=== PATIENT | female | born 2000 | race Caucasian/White ===

== ENCOUNTER 2023-02-25 04:00 | Day surgery (SDC) | payer BC, SELFPAY ==
[2023-02-25] VITALS (29 sets, daily range): BP systolic 81–133; BP diastolic 44–79; PULSE 66–103; RESP 14–16; TEMP 36.3–37.3; O2SAT 92–99; BMI 21.3; BMI 21.2
--- NOTE | 2023-02-25 04:33 | ED.GENADULT ---
HPI - General Adult General Stated complaint: abdomen pain Time Seen by Provider: 02/25/23 04:28 Related Data Home Medications Medication Instructions Recorded Confirmed etonogestrel 68 mg subdermal 1 implant subdermal ONCE 04/24/22 06/03/22 implant (Nexplanon) Previous Rx's Medication Instructions Recorded amoxicillin 875 mg-potassium 1 tab PO Q12H #20 tabs 04/24/22 clavulanate 125 mg tablet Allergies Allergy/AdvReac Type Severity Reaction Status Date / Time No Known Drug Allergies Allergy Verified 06/03/22 14:08 PFSH PFSH Social History Smoking Status: Never smoker Discharge Plan Discharge Prescriptions: No Action Nexplanon 68 mg implant 1 implant subdermal ONCE Rx Instructions: as a single dose amoxicillin-pot clavulanate 875-125 mg tablet 1 tab PO Q12H Qty: 20 0RF Follow Up/Referrals: Nicole Stuart MD [Primary Care Provider] -
[2023-02-25 05:05] LABS: Appearance Urine Cloudy (Clear); Bilirubin Urine Negative (Negative); Blood Urine Negative (Negative); Color Urine Yellow (Yellow); Glucose Urine Negative (Negative); Ketones Urine Negative (Negative); Leukocyte Esterase Urine Trace (Negative); Nitrite Urine Negative (Negative); Protein Urine Negative (Negative); Urobilinogen Urine 0.2 (0.2-1.0)
[2023-02-25] MEDS: ONDANSETRON 2 MG/ML inj 4 MG IVP ×2 (05:05→09:06)
[2023-02-25] MEDS: 0.9 % SODIUM CHLORIDE 1000 ml 1,000 ML IV (05:05)
[2023-02-25] MEDS: KETOROLAC 30 MG/ML inj IVP (05:07)
[2023-02-25] MEDS: HYDROmorphone 0.5 mg/0.5 ml inj IVP ×3 (05:10→12:30)
[2023-02-25 05:12] LABS: Amorphous Sediment Urine Moderate; Bacteria Urine Moderate; RBC Urine 0-2 (0-2); Squamous Epithelial Cell Urine Few (None-Few)
[2023-02-25 05:17] LABS: Ur HCG Qualitative* Negative (Negative)
--- NOTE | 2023-02-25 05:20 | ED_ITS ---
HPI - General Adult General Time Seen by Provider: 05:20 <Ladarius Davila MD - Last Filed: 02/25/23 10:27> Date Seen: 02/25/23 <Ladarius Davila MD - Last Filed: 02/25/23 10:27> Chief complaint: Abdominal Pain <Ladarius Davila MD - Last Filed: 02/25/23 10:27> Stated complaint: abdomen pain <Ladarius Davila MD - Last Filed: 02/25/23 10:27> Time Seen by Provider: 02/25/23 04:28 <Ladarius Davila MD - Last Filed: 02/25/23 10:27> Source: patient <Ladarius Davila MD - Last Filed: 02/25/23 10:27> Mode of arrival: ambulatory <Ladarius Davila MD - Last Filed: 02/25/23 10:27> Limitations: no limitations <Ladarius Davila MD - Last Filed: 02/25/23 10:27> History of Present Illness HPI narrative: Patient is a 22-year-old female who presents here with abdominal pain in her suprapubic right lower quadrant region. Is been for the last couple days but definitely worsened overnight. She says it is worse when she moves but is also there when she does not move. She describes it as sharp crampy. Some mild nausea associated with this but she has not vomited. Does not radiate to her back or anywhere else, there is no evidence or history of constipation, her bowel movements been normal, she has no dysuria frequency noted. No past history of any operations. She has Nexplanon in her a left arm. Denies being and neck she took a test before she came in which was negative. Denies use of alcohol drugs, smoking, works in like [employer]. Did not take any medications for the discomfort. <Ladarius Davila MD - Last Filed: 02/25/23 10:27> Related Data Home medications: Home Medications Medication Instructions Recorded Confirmed etonogestrel 68 mg subdermal 1 implant subdermal ONCE 04/24/22 02/25/23 implant (Nexplanon) Previous Rx's Medication Instructions Recorded hydrocodone 5 mg-acetaminophen 325 1 tab PO Q6H PRN pain #15 tabs 02/25/23 mg tablet <Ladarius Davila MD - Last Filed: 02/25/23 10:27> Allergies/adverse reactions: Allergies Allergy/AdvReac Type Severity Reaction Status Date / Time No Known Drug Allergies Allergy Verified 02/25/23 08:59 <Ladarius Davila MD - Last Filed: 02/25/23 10:27> Review of Systems Status of ROS: Reports: 10 or more systems reviewed and unremarkable except as noted in History and below <Ladarius Davila MD - Last Filed: 02/25/23 10:27> [facility] Surgical History: Surgical History History of hymenectomy ?Z90.79 - Acquired absence of other genital organ(s) (ICD-10) <Ladarius Davila MD - Last Filed: 02/25/23 10:27> Social History: Social History Narrative: Denies smoking and drinks alcohol on the weekends. 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 Smoking Status: Never smoker Second hand tobacco smoke exposure: No How often do you have a drink containing alcohol: 2-4 times a month How many standard drinks containing alcohol do you have on a typical day: 3 or 4 How often do you have six or more drinks on one occasion: Never AUDIT-C Alcohol total score: 3 Non-prescribed substance use: denies use service: No <Ladarius Davila MD - Last Filed: 02/25/23 10:27> Exam Narrative: Exam Narrative: On examination she is in some moderate discomfort, tearing up. Pupils equal round reactive to light there is no scleral icterus redness or TMs are normal oropharynx is normal, there is no evidence of any redness, swelling, neck is supple absence of meningismus is noted, chest is good air entry bilaterally with no wheezing crackles noted heart sounds are normal, no clicks murmurs or gallops. Abdomen shows tenderness more on the right than the left side of her lower abdomen. No peritoneal signs, bowel sounds are normal, no CVA tenderness in moves all extremities independently and well. Skin reveals no rashes, <Ladarius Davila MD - Last Filed: 02/25/23 10:27> Const: Vital Signs, click to edit/add: Vital Signs - 24 hr 02/25/23 04:34 02/25/23 05:13 02/25/23 05:15 Temperature 99.2 F Pulse Rate 103 H Pulse Rate [Left P ulse Oximeter] 100 Pulse Rate [Pulse Oximeter] Respiratory Rate 16 Blood Pressure Blood Pressure [Ri ght Arm] Blood Pressure [Ri ght Upper Arm] 133/79 Pulse Oximetry 98 99 98 Oxygen Delivery Me thod Room Air 02/25/23 05:22 02/25/23 05:48 02/25/23 09:07 Temperature 99.2 F 98.7 F Pulse Rate 92 Pulse Rate [Left P ulse Oximeter] Pulse Rate [Pulse Oximeter] 75 Respiratory Rate 16 16 Blood Pressure 113/66 Blood Pressure [Ri ght Arm] 108/67 Blood Pressure [Ri ght Upper Arm] Pulse Oximetry 97 96 Oxygen Delivery Me thod Room Air <Ladarius Davila MD - Last Filed: 02/25/23 10:27> Vital Signs, click to edit/add: Vital Signs - 24 hr 02/25/23 04:34 02/25/23 05:13 02/25/23 05:15 Temperature 99.2 F Pulse Rate 103 H Pulse Rate [Left P ulse Oximeter] 100 Pulse Rate [Pulse Oximeter] Respiratory Rate 16 Blood Pressure Blood Pressure [Ri ght Arm] Blood Pressure [Ri ght Upper Arm] 133/79 Pulse Oximetry 98 99 98 Oxygen Delivery Me thod Room Air 02/25/23 05:22 02/25/23 05:48 02/25/23 09:07 Temperature 99.2 F 98.7 F Pulse Rate 92 Pulse Rate [Left P ulse Oximeter] Pulse Rate [Pulse Oximeter] 75 Respiratory Rate 16 16 Blood Pressure 113/66 Blood Pressure [Ri ght Arm] 108/67 Blood Pressure [Ri ght Upper Arm] Pulse Oximetry 97 96 Oxygen Delivery Me thod Room Air <Maksim Cuellar MD - Last Filed: 05/04/23 12:15> Documenting provider has reviewed patient's vital signs: yes <Ladarius Davila MD - Last Filed: 02/25/23 10:27> Course Reevaluation(s) Time of Reevaluation #1: 06:51 <Ladarius Davila MD - Last Filed: 02/25/23 10:27> Reevaluation #1: Pain is improved but she still has pain in the right lower quadrant, still fairly marked, went over the results with her including her leukocytosis, mildly positive urine test. Normal liver panel, normal lipase, negative test. My review of the CT scan shows a slightly enlarged appendix, but she also has a right-sided ovarian cyst complex, with no free fluid. Explained to her that we will wait for the read on radiology, likely get a ultrasound further delineate the ovarian issues. I will sign her over to my partner Dr. Kwadwo henning for further disposition, treatment, and diagnosis. <Ladarius Davila MD - Last Filed: 02/25/23 10:27> Pain is improved but she still has pain in the right lower quadrant, still fairly marked, went over the results with her including her leukocytosis, mildly positive urine test. Normal liver panel, normal lipase, negative test. My review of the CT scan shows a slightly enlarged appendix, but she also has a right-sided ovarian cyst complex, with no free fluid. Explained to her that we will wait for the read on radiology, likely get a ultrasound further delineate the ovarian issues. I will sign her over to my partner Dr. Polo henning for further disposition, treatment, and diagnosis. <Maksim Cuellar MD - Last Filed: 05/04/23 12:15> Time of Reevaluation #2: 07:40 <Maksim Cuellar MD - Last Filed: 05/04/23 12:15> Reevaluation #2: Call from radiology regarding imaging results. IMPRESSION: Findings concerning for acute uncomplicated appendicitis. Plan to call general surgery educational assistant teacher. Dr. Allen. Patient to go for ultrasound. <Maksim Cuellar MD - Last Filed: 05/04/23 12:15> Time of Reevaluation #3: 08:55 <Maksim Cuellar MD - Last Filed: 05/04/23 12:15> Reevaluation #3: Dr. Orozco to take patient to the OR for acute appendicitis, pain has been controlled, patient was in agreement with the plan. <Maksim Cuellar MD - Last Filed: 05/04/23 12:15> Vital Signs Vital signs: Initial Vital Signs Temperature 99.2 F 02/25/23 04:34 Temperature Source Temporal Artery Scan 02/25/23 04:34 Pulse Rate 100 02/25/23 04:34 Respiratory Rate 16 02/25/23 04:34 Blood Pressure 133/79 02/25/23 04:34 Blood Pressure Mean 97 02/25/23 04:34 Blood Pressure Position Sitting 02/25/23 04:34 Pulse Oximetry 98 02/25/23 04:34 Oxygen Delivery Method Room Air 02/25/23 04:34 Vital Signs Temperature 99.2 F 02/25/23 04:34 Pulse Rate 100 02/25/23 04:34 Respiratory Rate 16 02/25/23 04:34 Blood Pressure 133/79 02/25/23 04:34 Pulse Oximetry 98 02/25/23 04:34 Oxygen Delivery Method Room Air 02/25/23 04:34 Temperature 98.1 F 02/25/23 13:30 Pulse Rate 75 02/25/23 14:30 Respiratory Rate 16 02/25/23 14:30 Blood Pressure 116/69 02/25/23 14:30 Pulse Oximetry 99 02/25/23 14:30 Oxygen Delivery Method Room Air 02/25/23 14:30 Oxygen Flow Rate 0 02/25/23 14:30 <Ladarius Davila MD - Last Filed: 02/25/23 10:27> Initial Vital Signs Temperature 99.2 F 02/25/23 04:34 Temperature Source Temporal Artery Scan 02/25/23 04:34 Pulse Rate 100 02/25/23 04:34 Respiratory Rate 16 02/25/23 04:34 Blood Pressure 133/79 02/25/23 04:34 Blood Pressure Mean 97 02/25/23 04:34 Blood Pressure Position Sitting 02/25/23 04:34 Pulse Oximetry 98 02/25/23 04:34 Oxygen Delivery Method Room Air 02/25/23 04:34 Vital Signs Temperature 99.2 F 02/25/23 04:34 Pulse Rate 100 02/25/23 04:34 Respiratory Rate 16 02/25/23 04:34 Blood Pressure 133/79 02/25/23 04:34 Pulse Oximetry 98 02/25/23 04:34 Oxygen Delivery Method Room Air 02/25/23 04:34 Temperature 98.1 F 02/25/23 13:30 Pulse Rate 75 02/25/23 14:30 Respiratory Rate 16 02/25/23 14:30 Blood Pressure 116/69 02/25/23 14:30 Pulse Oximetry 99 02/25/23 14:30 Oxygen Delivery Method Room Air 02/25/23 14:30 Oxygen Flow Rate 0 02/25/23 14:30 <Maksim Cuellar MD - Last Filed: 05/04/23 12:15> Medical Decision Making MDM Narrative Medical decision making narrative: During the evaluation of this patient I considered multiple differential diagnosis including life-threatening differentials which are appendicitis, aortic aneurysm, mesenteric ischemia, bowel perforation, ectopic , volvulus and bowel obstruction, other differential diagnosis include but are not limited to inflammatory bowel disease, cholecystitis, pancreatitis, hepatitis, gastritis, GERD, diverticulitis, peptic ulcer disease, pyelonephritis/UTI, renal colic/stone, pelvic inflammatory disease, cervicitis, endometritis, intrauterine , dysfunctional uterine bleeding, ovarian cyst/torsion, spontaneous as well as other etiologies <Ladarius Davila MD - Last Filed: 02/25/23 10:27> Lab Data Labs: Lab Results 02/25/23 02/25/23 02/25/23 Range/Units 04:55 05:10 09:12 WBC 14.43 H (4.50-11.00) K/uL RBC 4.12 (4.00-5.20) m/uL Hgb 13.1 (12.0-16.0) gm/dL Hct 38.8 (33.0-51.0) % MCV 94 (80-100) fL MCH 32 (26-34) pg MCHC 34 (32-36) gm/dL RDW Coeff of Janette 12.1 (11.5-15.5) % Plt Count 207 (140-440) K/uL Neut % (Auto) 85.0 H (42.0-72.0) % Lymph % (Auto) 8.9 L (20-44) % [place] % (Auto) 5.6 (0.0-11.0) % Eos % (Auto) 0.3 (0.0-7.0) % Baso % (Auto) 0.1 (0.0-3.0) % Neut # (Auto) 12.30 H (1.7-7.0) K/uL Lymph # (Auto) 1.30 (0.90-2.90) K/uL [place] # (Auto) 0.80 (0.00-0.90) K/UL Eos # (Auto) 0.00 (0.00-0.50) K/uL Baso # (Auto) 0.00 (0.00-0.30) K/uL Abs Immat Gran (auto) 0.00 (0.00-0.30) K/uL Imm/Tot Granulo (auto) 0.1 % Sodium 138 (135-149) mmol/L Potassium 3.9 (3.6-5.1) mmol/L Chloride 104 (96-114) mmol/L Carbon Dioxide 25 (20-32) mmol/L Anion Gap 9 (7-15) mEq/L BUN 15 (5-24) mg/dL Creatinine 0.9 (0.5-1.5) mg/dL Estimated Creat Clear 81.79 Estimated GFR 93 ml/min Glucose 98 (60-115) mg/dL Calcium 9.7 (8.4-10.6) mg/dL Total Bilirubin 1.2 (0.1-1.5) mg/dL Direct Bilirubin 0.0 (0.0-0.5) mg/dL AST 24 (12-35) U/L ALT 22 (4-35) U/L Alkaline Phosphatase 80 (40-150) U/L Total Protein 7.4 (6.0-8.3) g/dL Albumin 4.3 (3.3-5.0) g/dL Lipase 69 (23-300) U/L TSH 2.210 (0.270-4.20) uIU/mL Urine Color Yellow (Yellow) Urine Appearance Cloudy A (Clear) Urine pH 8.0 (5.0-8.5) Ur Specific [place] 1.020 (1.000-1.030) Urine Protein Negative (Negative) Urine Glucose (UA) Negative (Negative) Urine Ketones Negative (Negative) Urine Blood Negative (Negative) Urine Nitrite Negative (Negative) Urine Bilirubin Negative (Negative) Urine Urobilinogen 0.2 (0.2-1.0) Ur Leukocyte Esterase Trace A (Negative) Urine RBC 0-2 (0-2) Urine WBC 5-10 A (0-5) Ur Squamous Epith Cells Few (None-Few) Amorphous Sediment Moderate A (None) Urine Bacteria Moderate A (None) Urine HCG, Qual Negative (Negative) SARS-CoV-2 (PCR) Negative SARS-CoV-2 (Negative) Influenza Type A (PCR) Negative PCR FLU A (Negative) Influenza Type B (PCR) Negative PCR FLU B (Negative) RSV (PCR) Negative PCR RSV (Negative) Lab Acknowledgement Test Added <Ladarius Davila MD - Last Filed: 02/25/23 10:27> Lab Results 02/25/23 02/25/23 02/25/23 Range/Units 04:55 05:10 09:12 WBC 14.43 H (4.50-11.00) K/uL RBC 4.12 (4.00-5.20) m/uL Hgb 13.1 (12.0-16.0) gm/dL Hct 38.8 (33.0-51.0) % MCV 94 (80-100) fL MCH 32 (26-34) pg MCHC 34 (32-36) gm/dL RDW Coeff of Janette 12.1 (11.5-15.5) % Plt Count 207 (140-440) K/uL Neut % (Auto) 85.0 H (42.0-72.0) % Lymph % (Auto) 8.9 L (20-44) % [place] % (Auto) 5.6 (0.0-11.0) % Eos % (Auto) 0.3 (0.0-7.0) % Baso % (Auto) 0.1 (0.0-3.0) % Neut # (Auto) 12.30 H (1.7-7.0) K/uL Lymph # (Auto) 1.30 (0.90-2.90) K/uL [place] # (Auto) 0.80 (0.00-0.90) K/UL Eos # (Auto) 0.00 (0.00-0.50) K/uL Baso # (Auto) 0.00 (0.00-0.30) K/uL Abs Immat Gran (auto) 0.00 (0.00-0.30) K/uL Imm/Tot Granulo (auto) 0.1 % Sodium 138 (135-149) mmol/L Potassium 3.9 (3.6-5.1) mmol/L Chloride 104 (96-114) mmol/L Carbon Dioxide 25 (20-32) mmol/L Anion Gap 9 (7-15) mEq/L BUN 15 (5-24) mg/dL Creatinine 0.9 (0.5-1.5) mg/dL Estimated Creat Clear 81.79 Estimated GFR 93 ml/min Glucose 98 (60-115) mg/dL Calcium 9.7 (8.4-10.6) mg/dL Total Bilirubin 1.2 (0.1-1.5) mg/dL Direct Bilirubin 0.0 (0.0-0.5) mg/dL AST 24 (12-35) U/L ALT 22 (4-35) U/L Alkaline Phosphatase 80 (40-150) U/L Total Protein 7.4 (6.0-8.3) g/dL Albumin 4.3 (3.3-5.0) g/dL Lipase 69 (23-300) U/L TSH 2.210 (0.270-4.20) uIU/mL Urine Color Yellow (Yellow) Urine Appearance Cloudy A (Clear) Urine pH 8.0 (5.0-8.5) Ur Specific [place] 1.020 (1.000-1.030) Urine Protein Negative (Negative) Urine Glucose (UA) Negative (Negative) Urine Ketones Negative (Negative) Urine Blood Negative (Negative) Urine Nitrite Negative (Negative) Urine Bilirubin Negative (Negative) Urine Urobilinogen 0.2 (0.2-1.0) Ur Leukocyte Esterase Trace A (Negative) Urine RBC 0-2 (0-2) Urine WBC 5-10 A (0-5) Ur Squamous Epith Cells Few (None-Few) Amorphous Sediment Moderate A (None) Urine Bacteria Moderate A (None) Urine HCG, Qual Negative (Negative) SARS-CoV-2 (PCR) Negative SARS-CoV-2 (Negative) Influenza Type A (PCR) Negative PCR FLU A (Negative) Influenza Type B (PCR) Negative PCR FLU B (Negative) RSV (PCR) Negative PCR RSV (Negative) Lab Acknowledgement Test Added <Maksim Cuellar MD - Last Filed: 05/04/23 12:15> Discharge Plan Discharge Clinical Impression: Acute appendicitis <Ladarius Davila MD - Last Filed: 02/25/23 10:27> Patient Disposition: XFER to OR <Ladarius Davila MD - Last Filed: 02/25/23 10:27>
[2023-02-25 05:21] LABS: Basophils Percent Auto 0.1 % (0.0-3.0); Eosinophils Percent Auto 0.3 % (0.0-7.0); Hematocrit 38.8 % (33.0-51.0); Hemoglobin* 13.1 gm/dL (12.0-16.0); Immature Granulocytes Pct Auto 0.1 %; Lymphocytes Percent Auto 8.9 % (20-44); Mean Corpuscular HGB Conc 34 gm/dL (32-36); Mean Corpuscular Hemoglobin 32 pg (26-34); Mean Corpuscular Volume 94 fL (80-100); Monocytes Percent Auto 5.6 % (0.0-11.0); Platelet Count* 207 K/uL (140-440); RDW Coefficient of Variation % 12.1 % (11.5-15.5); Red Blood Count 4.12 m/uL (4.00-5.20); White Blood Count* 14.43 K/uL (4.50-11.00)
[2023-02-25 05:24] LABS: Slide Review Reflex No
--- NOTE | 2023-02-25 05:28 | CRLHL7_ITS ---
For Patients: As a result of the Century Cures Act, medical imaging exams and procedure reports are released immediately into your electronic medical record. You may view this report before your referring provider. If you have questions, please contact your health care provider. INDICATION: Right lower abdominal pain. TECHNIQUE: CT abdomen and pelvis acquired with 58 cc Isovue 370 IV contrast. COMPARISON: None. FINDINGS: Lower chest: Unremarkable. Liver: Unremarkable. Normal in size and attenuation. No suspicious masses. Gallbladder and bile ducts: Unremarkable. No stones or inflammation. No biliary dilatation. Pancreas: Unremarkable. No mass or inflammation. Spleen: Unremarkable. Normal in size. No masses. Adrenal glands: Unremarkable. No nodules. Kidneys: Unremarkable. No suspicious masses, stones, or hydronephrosis. GI tract: Normal in caliber. Mild appendiceal dilation measuring up to 9 millimeters with trace periappendiceal fluid/inflammatory stranding (axial image 88 and sagittal image 109). No nirmal appendiceal fluid collection or free air. No calcified appendicolith. Vasculature: Abdominal aorta is normal in caliber. Mesenteric arteries are patent. Lymph nodes: No lymphadenopathy. Peritoneum/Abdominal Wall: Unremarkable. No sign of mass or infiltration. No free air. Pelvis: Unremarkable. Bones: Unremarkable for age. IMPRESSION: Findings concerning for acute uncomplicated appendicitis. Impression discussed via telephone with Dr. Cuellar on 02/25/2023 at 07:36. Please note that all CT scans at this facility use dose modulation, iterative reconstruction, and/or weight-based dosing when appropriate to reduce radiation dose to as low as reasonably achievable. Dictated by Lay Bellamy MD @ 02/25/2023 7:37:31 AM (Electronically Signed)
[2023-02-25 05:36] LABS: Albumin* 4.3 g/dL (3.3-5.0); Chloride* 104 mmol/L (96-114); Sodium* 138 mmol/L (135-149)
[2023-02-25 05:37] LABS: Potassium* 3.9 mmol/L (3.6-5.1)
[2023-02-25 05:38] LABS: Creatinine* 0.9 mg/dL (0.5-1.5); Est. Creatinine Clearance* 81.79; Estimated Glomerular Filt Rate 93 ml/min
[2023-02-25 05:39] LABS: Alanine Aminotransferase* 22 U/L (4-35); Alkaline Phosphatase* 80 U/L (40-150); Anion Gap 9 mEq/L (7-15); Aspartate Amino Transferase* 24 U/L (12-35); Bilirubin Total* 1.2 mg/dL (0.1-1.5); Blood Urea Nitrogen* 15 mg/dL (5-24); Calcium* 9.7 mg/dL (8.4-10.6); Carbon Dioxide* 25 mmol/L (20-32); Glucose* 98 mg/dL (60-115); Lipase* 69 U/L (23-300); Total Protein* 7.4 g/dL (6.0-8.3)
[2023-02-25 05:59] LABS: PCR FLU A Negative PCR FLU A (Negative); PCR FLU B Negative PCR FLU B (Negative); PCR RSV Negative PCR RSV (Negative)
[2023-02-25 06:00] LABS: SARS PCR* Negative SARS-CoV-2 (Negative)
--- NOTE | 2023-02-25 06:21 | CRLHL7_ITS ---
For Patients: As a result of the Cures Act, medical imaging exams and procedure reports are released immediately into your electronic medical record. You may view this report before your referring provider. If you have questions, please contact your health care provider. INDICATION: Ovarian cysts on prior CT not otherwise described in the history or on the prior CT report. TECHNIQUE: Ultrasound pelvis transabdominal. COMPARISON: CT 02/25/2023 at 6:04 a.m.. FINDINGS: The uterus is unremarkable. The right ovary is not identified. Review of the prior CT shows a normal right ovary with a tubular fluid density right adnexal finding suspicious for an incidental hydrosalpinx. Normal left ovary notable for a dominant follicle measuring less than 2 cm. This corresponds to a simple left adnexal cyst consistent with ovarian follicle measuring 2.1 cm on the prior CT (112/147). Spectral Doppler demonstrates a normal arterial waveform within the peripheral left ovarian parenchymal tissue. Small volume low-density pelvic ascites on the prior CT is not demonstrated on this examination. This is a nonspecific finding within physiologic limits of normal. Please note findings of acute appendicitis described in the report of the prior CT are not demonstrated on this examination. The appendix is not identified. IMPRESSION: Benign left ovarian follicle. The right ovary cannot be identified. Review of the prior CT is notable for a possible right hydrosalpinx. Differential diagnostic considerations include fluid-filled nondilated small-bowel loops in the right and uterine adnexal region. The right ovary on the prior CT is unremarkable. Dictated by Tex Blunt MD @ 02/25/2023 10:41:38 AM (Electronically Signed)
--- NOTE | 2023-02-25 09:07 | PM.GSCN ---
History of Present Illness Consult details Date Seen: 02/25/23 Consult date: 02/25/23 Narrative: 22-year-old female presented to emergency room with abdominal pain. Patient states that last night at 11:30 a.m. she started to feel periumbilical abdominal pain. She took Tums and try to use heat with no relief. She could not get comfortable. She finally fell asleep and woke up in the middle of the night with severe pain. The pain now was more towards the right lower quadrant. Movement made the pain worse. Nothing was helping the pain. Patient presented to the emergency room. She denied any vomiting but had nausea. Her last bowel movement was yesterday. In the emergency room she was found to have an elevated WBC of 14. An abdominal CT was obtained that showed a dilated wall enhancing appendix with no periappendiceal phlegmon or abscess. Review of Systems Narrative: General: no fevers HENT: no problems swallowing CV: no shortness of breath Resp: no cough GI: See above : Patient has not had her period for 3 years, she is on Nexplanon. 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 Smoking Status: Never smoker Second hand tobacco smoke exposure: No How often do you have a drink containing alcohol: 2-4 times a month How many standard drinks containing alcohol do you have on a typical day: 3 or 4 How often do you have six or more drinks on one occasion: Never AUDIT-C Alcohol total score: 3 Non-prescribed substance use: denies use service: No Meds Home Medications and Allergies Home Medications Medication Instructions Recorded Confirmed Type etonogestrel 68 mg subdermal 1 implant subdermal ONCE 04/24/22 02/25/23 History implant (Nexplanon) Allergies Allergy/AdvReac Type Severity Reaction Status Date / Time No Known Drug Allergies Allergy Verified 02/25/23 08:59 Exam Narrative: Exam Narrative: General appearance: Alert, cooperative, and in no distress Pulmonary: Chest symmetric, lungs clear bilaterally Cardiovascular Heart: Regular rate and rhythm, S1, S2, no murmurs/rubs/gallops Gastrointestinal Abdominal: soft, not distended, tender to palpation in the right lower quadrant with rebound tenderness. No tenderness anywhere else. Skin: Normal skin color, texture, and turgor. No rashes or lesions. Psychiatric: Alert, cooperative, normal affect. Const: Vital Signs, click to edit/add: Vital Signs - 24 hr 02/25/23 04:34 02/25/23 05:13 02/25/23 05:15 Temperature 99.2 F Pulse Rate 103 H Pulse Rate [Left P ulse Oximeter] 100 Respiratory Rate 16 Blood Pressure Blood Pressure [Ri ght Upper Arm] 133/79 Pulse Oximetry 98 99 98 Oxygen Delivery Me thod Room Air 02/25/23 05:22 02/25/23 05:48 Temperature 99.2 F Pulse Rate 92 Pulse Rate [Left P ulse Oximeter] Respiratory Rate 16 Blood Pressure 113/66 Blood Pressure [Ri ght Upper Arm] Pulse Oximetry 97 Oxygen Delivery Me thod Results Labs Labs: Abnormal lab results 02/25/23 02/25/23 Range/Units 04:55 05:10 WBC 14.43 H (4.50-11.00) K/uL Neut % (Auto) 85.0 H (42.0-72.0) % Lymph % (Auto) 8.9 L (20-44) % Neut # (Auto) 12.30 H (1.7-7.0) K/uL Urine Appearance Cloudy A (Clear) Ur Leukocyte Esterase Trace A (Negative) Urine WBC 5-10 A (0-5) Amorphous Sediment Moderate A (None) Urine Bacteria Moderate A (None) Diabetes panel 02/25/23 Range/Units 05:10 Sodium 138 (135-149) mmol/L Potassium 3.9 (3.6-5.1) mmol/L Chloride 104 (96-114) mmol/L Carbon Dioxide 25 (20-32) mmol/L BUN 15 (5-24) mg/dL Creatinine 0.9 (0.5-1.5) mg/dL Glucose 98 (60-115) mg/dL Calcium 9.7 (8.4-10.6) mg/dL AST 24 (12-35) U/L ALT 22 (4-35) U/L Alkaline Phosphatase 80 (40-150) U/L Total Protein 7.4 (6.0-8.3) g/dL Albumin 4.3 (3.3-5.0) g/dL Calcium panel 02/25/23 Range/Units 05:10 Calcium 9.7 (8.4-10.6) mg/dL Albumin 4.3 (3.3-5.0) g/dL Pituitary panel 02/25/23 Range/Units 05:10 Sodium 138 (135-149) mmol/L Potassium 3.9 (3.6-5.1) mmol/L Chloride 104 (96-114) mmol/L Carbon Dioxide 25 (20-32) mmol/L BUN 15 (5-24) mg/dL Creatinine 0.9 (0.5-1.5) mg/dL Glucose 98 (60-115) mg/dL Calcium 9.7 (8.4-10.6) mg/dL Adrenal panel 02/25/23 Range/Units 05:10 Sodium 138 (135-149) mmol/L Potassium 3.9 (3.6-5.1) mmol/L Chloride 104 (96-114) mmol/L Carbon Dioxide 25 (20-32) mmol/L BUN 15 (5-24) mg/dL Creatinine 0.9 (0.5-1.5) mg/dL Glucose 98 (60-115) mg/dL Calcium 9.7 (8.4-10.6) mg/dL Total Bilirubin 1.2 (0.1-1.5) mg/dL AST 24 (12-35) U/L ALT 22 (4-35) U/L Alkaline Phosphatase 80 (40-150) U/L Total Protein 7.4 (6.0-8.3) g/dL Albumin 4.3 (3.3-5.0) g/dL All other labs normal. Assessment and Plan Assessment and plan (1) Acute appendicitis: Status: Acute Plan 22-year-old female presents with acute appendicitis. I discussed with the patient and her mother over the phone her laboratory and imaging findings. Her CT scan shows inflamed and dilated appendix consistent with acute appendicitis. I recommended to proceed with laparoscopic appendectomy. The procedure was discussed in detail, the risks associated with the procedure including infection, bleeding, and injury to the intra-abdominal organs were all discussed with the patient, and she agreed to proceed.
--- NOTE | 2023-02-25 09:54 | W.ANESCHARGE ---
Anesthesia Charges Start Date/Time Anesthesia Start Date: 02/25/23 Anesthesia Start Time: 10:29 Stop Date/Time Anesthesia Stop Date: 02/25/23 Anesthesia Stop Time: 11:41 Summary Emergency: MDA
[2023-02-25] MEDS: CEFAZOLIN 1 GM inj IVP (10:36)
[2023-02-25] MEDS: LACTATED RINGERS 1000 ML 1,000 ML 100 ML IV ×2 (10:40→12:57)
[2023-02-25] MEDS: BUPIVACAINE 0.25% 30 ML INJECTION (11:03)
--- NOTE | 2023-02-25 11:39 | PM.GSPRC ---
Operative Note Pre-op diagnosis: 1. Acute appendicitis. Post-op diagnosis: 1. Acute suppurative appendicitis. Type of Procedure: 1. Laparoscopic appendectomy. Indications: 22-year-old female presented to emergency room with several hours of abdominal pain that started periumbilical and migrated to the right lower quadrant. Patient had nausea but no vomiting. Patient was found to have an elevated WBC of 14. An abdominal CT was obtained that showed a dilated wall enhancing appendix with no evidence of perforation. There was no evidence of periappendiceal abscess. On clinical exam patient had tenderness to palpation in the right lower quadrant with rebound tenderness. Given patient's clinical history, acute appendicitis was suspected, and laparoscopic appendectomy was recommended. The procedure was discussed in detail. The risks associated procedure including infection, bleeding, and injury to intra-abdominal organs were all discussed with the patient, and she agreed to proceed. Procedure Description: After discussing the risks and benefits of the procedure, the patient signed informed consent.? The operative site was marked and the patient was brought to the operating room and placed on the operating table in supine position.? Care was taken to pad the patient's pressure points.?? The patient was then intubated by anesthesia.?? The operative site was then prepped and draped in the usual sterile fashion.? A time-out was then performed. A 5-mm laparoscopy port was placed in the left upper quadrant guided by a 5-mm laparoscope placed into a translucent trochar. Passage through the layers of the abdominal wall was visualized with the laparoscope. A pneumoperitoneum was established. A 30-degree 5-mm laparoscope was advanced into the abdomen. The abdomen was briefly surveyed, and there was no evidence of diffuse peritonitis. A 12-mm port and a 5-mm port were placed in the left low quadrant and suprapubically, under direct visualization by laparoscope. Left upper quadrant entrance port was then examined intraabdominally by placing the camera through the left lower quadrant port and no intraabdominal injury was seen. The patient was placed in Trendelenburg position, allowing the abdominal contents to shift cephalad. The small bowel was moved toward the midline in the abdomen and this allowed for identification of the appendix. It appeared to be inflamed. The appendix was grasped and dissected from the peritoneum using Harmonic scalpel. A [place] clamp was passed between the appendiceal mesentery and the base of the appendix, creating a window. The appendiceal artery was further skeletonized with Harmonic scalpel. The appendiceal artery and vein were clipped with 5 mm clips on the patient's side and divided with Harmonic scalpel on the specimen side. A vascular load Endo-SHAY stapler was advanced through the 12-mm port into the abdomen and appendix was stapled off at its base. The appendix was then placed in an endoscopic retrieval bag and extracted from the abdomen through the 12-mm port. The abdomen was surveyed for hemostasis. And no bleeding was seen. Bilateral ovaries were examined and tiny left ovarian cysts were noted. The 12-mm port was withdrawn and the fascial defect was closed with 0-0 Vicryl stitch. This closure was examined intra-abdominally, and no intra-abdominal structures were incarcerated in the closure. The 5-mm port was removed under direct visualization. The left upper quadrant port was used to evacuate the pneumoperitoneum and then withdrawn. The skin incisions were closed with 4-0 monocryl. Steri-Strips were applied over the incisions. All counts were correct at the end of the case. The patient tolerated this procedure well and was transferred to PACU in stable condition. Findings: Inflamed not perforated appendix. Anesthesia: GETA Surgeon: Everardo Allen MD Estimated blood loss (mL): 5 Specimen: Appendix Condition: stable Disposition: PACU Date of procedure: 02/25/23
--- NOTE | 2023-02-25 11:43 | P.ANES_ITS ---
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
== END 2023-02-25 15:24 | disposition home or self-care (01) ==
LOC: ED 08:59 → OR 09:01
PROVIDERS: Student in an Organized Health Care Education/Training Program; Emergency Provider Family Medicine; PCP Pediatrics; Visit Provider Surgery
PROC: 0DTJ4ZZ Resection of Appendix, Percutaneous Endoscopic Approach (ICD-10-PCS; CPT 44970; principal; 2023-02-25 10:30)
DX: K35.80 Unspecified acute appendicitis (principal)
CPT/HCPCS: 44970; 00840; 36415; 74177; 76856; 80048; 80076; 81001; 81025; 83690; 84443; 84703; 85025; 87086; 87631; 88304; 93976; 94761; 99140; 99284; 99285; J0330; J0665; J0690; J1100; J1170; J1200; J1885; J2250; J2405; J2704; J3010; J7030; J7120; Q9967

== ENCOUNTER 2023-05-25 23:00 | Emergency (ER) | payer BC, SELFPAY ==
[2023-05-25 23:16] VITALS: BP 129/89; PULSE 140; RESP 20; TEMP 38.1; O2SAT 98; BMI 21.3
--- NOTE | 2023-05-26 | CT_ITS ---
Patient: SINGH HINTON Facility:?[facility] Patient ID:?[id number] Site Patient ID:?[id number]. Site :?[id number] Study:?CT-ST Neck with 58cc [id number] contrast-05/26/2023 3:20:42 AM Ordering Physician:?Victor Manuel Farias Final Report: INDICATION: Sore throat. TECHNIQUE: CT soft tissue of the neck was acquired with 58 cc Isovue 370 IV contrast. COMPARISON: None. FINDINGS: Skull base: Unremarkable. Pharynx/Larynx/Trachea: Epiglottis is normal. Airway is patent. Adjacent soft tissues are normal. Salivary glands: Unremarkable. Thyroid gland: Unremarkable. No significant nodules. Lymph nodes: No lymphadenopathy. Vessels: Unremarkable for age. Bones: Unremarkable for age. Misc: No inflammation, mass or fluid collection. Lung apices: Unremarkable. IMPRESSION: Unremarkable soft tissue CT of the neck. Please note that all CT scans at this facility use dose modulation, iterative reconstruction, and/or weight-based dosing when appropriate to reduce radiation dose to as low as reasonably achievable. Dictated by Johnathan Alvarez MD @ 05/26/2023 3:50:05 AM Signed by:?Johnathan Alvarez MD @05/26/2023 3:50:05 AM (Electronic Signature)
[2023-05-26 00:15] LABS: PCR FLU A Negative PCR FLU A (Negative); PCR FLU B Negative PCR FLU B (Negative); PCR RSV Negative PCR RSV (Negative)
[2023-05-26 00:27] LABS: SARS PCR* Negative SARS-CoV-2 (Negative)
[2023-05-26 02:00] VITALS: O2SAT 98
[2023-05-26] MEDS: 0.9 % SODIUM CHLORIDE 1000 ml 1,000 ML IV (02:06)
[2023-05-26] MEDS: ONDANSETRON 2 MG/ML inj 4 MG IVP (02:06)
[2023-05-26] MEDS: dexAMETHasone 4 MG/ML VIAL 10 MG IV (02:07)
[2023-05-26] MEDS: MORPHINE 2 MG/ML inj IVP (02:10)
[2023-05-26 04:00] VITALS: RESP 16; O2SAT 98
[2023-05-26 04:15] VITALS: BP 113/78; PULSE 85; RESP 20; TEMP 37.2; O2SAT 98
--- NOTE | 2023-05-26 05:34 | ED_ITS ---
HPI - General Adult General Time Seen by Provider: 05:34 Date Seen: 05/26/23 Chief complaint: Unspecified Complaint, Adult Stated complaint: Vomiting all day, feels like throat ripped open Time Seen by Provider: 05/26/23 05:34 Source: patient, RN notes reviewed and old records reviewed Mode of arrival: ambulatory Limitations: no limitations History of Present Illness HPI narrative: 23-year-old female previously healthy presents for sore throat and inability to swallow.? Patient notes the onset of vomiting on the morning of 05/25/23 at 0300 hours that continued persistently till 0800 hours.? Patient states that during that time she had a lot of bile and now is unable to swallow.? She denies unilateral discomfort.? She states she feels like something happened in her throat when she sneezed.? She has not been able to take any fluids as she has persistent nausea.? She also reports abdominal pain from vomiting.? She denies any diarrhea.? Positive for a fever greater than 100 upon her arrival.? No known ill exposures. Related Data Home Medications Medication Instructions Recorded Confirmed etonogestrel 68 mg subdermal 1 implant subdermal ONCE 04/24/22 02/25/23 implant (Nexplanon) Previous Rx's Medication Instructions Recorded hydrocodone 5 mg-acetaminophen 325 1 tab PO Q6H PRN pain #15 tabs 02/25/23 mg tablet Allergies Allergy/AdvReac Type Severity Reaction Status Date / Time No Known Drug Allergies Allergy Verified 02/25/23 08:59 Review of Systems Status of ROS: Reports: 10 or more systems reviewed and unremarkable except as noted in History and below Narrative: Adamantly denies . Const: Reports: fever and fatigue Eyes: Denies: change in vision ENMT: Reports: throat pain, neck pain, throat swelling, difficulty swallowing and hoarseness; Denies: nasal discharge or nasal congestion Cardio: Denies: chest pain or shortness of breath with exertion Resp: Denies: shortness of breath or cough GI: Reports: abdominal pain, nausea, vomiting (Now resolved) and difficulty swallowing; Denies: diarrhea or bloating : Denies: painful urination Musculo: Reports: neck pain Integ/Breast: Denies: rash Neuro: Denies: headache Endo: Reports: fatigue Allergy/Immuno: Reports: throat swelling PFSH PFSH Surgical History 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 Smoking Status: Never smoker Second hand tobacco smoke exposure: No How often do you have a drink containing alcohol: 2-4 times a month How many standard drinks containing alcohol do you have on a typical day: 3 or 4 How often do you have six or more drinks on one occasion: Never AUDIT-C Alcohol total score: 3 Non-prescribed substance use: denies use service: No Exam Narrative: Exam Narrative: Patient is alert and oriented. Obvious hoarse voice. She does appear to be protecting her airway. No external neck asymmetry. TMs bilaterally without erythema or fluid. Oral cavity shows moist mucous membranes and increased erythema in the posterior oropharynx. Neck is supple. She has soft tissue swelling of the uvula and soft palate but no obvious obstruction. Neck is supple without lymphadenopathy. Heart with a tachycardic rate but normal rhythm. Lungs are clear bilaterally. Abdomen is soft no significant tenderness or organomegaly. Lower extremities without edema. Note there is a foul odor consistent with mono or strep. Const: Vital Signs, click to edit/add: Vital Signs - 24 hr 05/25/23 23:16 Temperature 100.6 F H Pulse Rate [Pulse Oximeter] 140 H Respiratory Rate 20 Blood Pressure [Ri ght Upper Arm] 129/89 Pulse Oximetry 98 Oxygen Delivery Me thod Room Air Documenting provider has reviewed patient's vital signs: yes Course Course ED Course: Differential diagnosis includes but is not limited to strep, viral infection, bacterial throat infection, mononucleosis, peritonsillar abscess, traumatic injury to throat. Will place IV and give morphine 2 mg, Zofran 4 mg and 1 L of normal saline. Plan on CT of the neck soft tissues as well as CBC, comprehensive, CRP, mono. Vital Signs Vital signs: Initial Vital Signs Temperature 100.6 F H 05/25/23 23:16 Temperature Source Temporal Artery Scan 05/25/23 23:16 Pulse Rate 140 H 05/25/23 23:16 Respiratory Rate 20 05/25/23 23:16 Blood Pressure 129/89 1212/23 23:16 Blood Pressure Mean 102 05/25/23 23:16 Pulse Oximetry 98 05/25/23 23:16 Oxygen Delivery Method Room Air 05/25/23 23:16 Vital Signs Temperature 100.6 F H 05/25/23 23:16 Pulse Rate 140 H 05/25/23 23:16 Respiratory Rate 20 05/25/23 23:16 Blood Pressure 129/89 05/25/23 23:16 Pulse Oximetry 98 05/25/23 23:16 Oxygen Delivery Method Room Air 05/25/23 23:16 Temperature 100.6 F H 05/25/23 23:16 Pulse Rate 140 H 05/25/23 23:16 Respiratory Rate 20 05/25/23 23:16 Blood Pressure 129/89 05/25/23 23:16 Pulse Oximetry 98 05/25/23 23:16 Oxygen Delivery Method Room Air 05/25/23 23:16 Medical Decision Making MDM Narrative Medical decision making narrative: 1. Pharyngitis-at this time I strongly suspect mononucleosis. [place] test is negative today as it should be as patient has had not enough days of symptoms to turned that positive. In the ED she is given Decadron 10 mg IV. Morphine 2 mg and Zofran 4 mg. She had no vomiting and was able to sleep soundly. Heart rate normalized during this. CT reassuring with no abnormalities. Strep was negative. Patient is feeling better at this time. I do reexamine abdomen and there is no evidence of organomegaly. Again, strongly suspect that this is a mono infection. I have advised patient to follow-up with her primary MD this week unless she has complete resolution of her symptoms in the next 48 hours. For ongoing symptoms past 7 days would recheck mono once again. She has continued on prednisone 20 mg p.o. b.i.d. x5 days. Finally, given appearance of throat erythema of fall odor am also suggesting an antibiotic but would avoid penicillins in this setting. Will use Z-Marin at this time. 2. Disposition-patient will be discharged home. She feels that she is able to take care of herself but assures me that there are others in her house that care for her. I would definitely follow up with her primary MD for ongoing symptoms. If this is indeed mono she will need to be monitor for potential development of organomegaly. She should return to the emergency room for worsening symptoms. Note that prior to departure her voice had almost entirely return to normal. She appeared to be much improved after resting here for a number of hours. Medical Records Medical records reviewed: Yes I reviewed the patient's medical records Lab Data Lab results reviewed: Yes I reviewed the patient's lab results Labs: Lab Results 05/25/23 05/26/23 Range/Units 22:23 01:55 WBC 8.34 (4.50-11.00) K/uL RBC 4.41 (4.00-5.20) m/uL Hgb 14.1 (12.0-16.0) gm/dL Hct 42.2 (33.0-51.0) % MCV 96 (80-100) fL MCH 32 (26-34) pg MCHC 33 (32-36) gm/dL Plt Count 207 (140-440) K/uL Neut % (Auto) 82.1 H (42.0-72.0) % Lymph % (Auto) 10.9 L (20-44) % [place] % (Auto) 6.5 (0.0-11.0) % Eos % (Auto) 0.2 (0.0-7.0) % Baso % (Auto) 0.1 (0.0-3.0) % Neut # (Auto) 6.80 (1.7-7.0) K/uL Lymph # (Auto) 0.90 (0.90-2.90) K/uL [place] # (Auto) 0.50 (0.00-0.90) K/UL Eos # (Auto) 0.00 (0.00-0.50) K/uL Baso # (Auto) 0.00 (0.00-0.30) K/uL Abs Immat Gran (auto) 0.00 (0.00-0.30) K/uL Imm/Tot Granulo (auto) 0.2 % Sodium 138 (135-149) mmol/L Potassium 3.7 (3.6-5.1) mmol/L Chloride 105 (96-114) mmol/L Carbon Dioxide 22 (20-32) mmol/L Anion Gap 11 (7-15) mEq/L BUN 16 (5-24) mg/dL Creatinine 0.9 (0.5-1.5) mg/dL Estimated Creat Clear 81.11 Estimated GFR 93 ml/min Glucose 109 (60-115) mg/dL Calcium 9.2 (8.4-10.6) mg/dL Total Bilirubin 1.4 (0.1-1.5) mg/dL AST 22 (12-35) U/L ALT 17 (4-35) U/L Alkaline Phosphatase 72 (40-150) U/L C-Reactive Protein 3.5 H (0.5-1.0) mg/dL Total Protein 7.8 (6.0-8.3) g/dL Albumin 4.7 (3.3-5.0) g/dL SARS-CoV-2 (PCR) Negative SARS-CoV-2 (Negative) Monoscreen Negative (Negative) Influenza Type A (PCR) Negative PCR FLU A (Negative) Influenza Type B (PCR) Negative PCR FLU B (Negative) RSV (PCR) Negative PCR RSV (Negative) Group A Strep DNA NOT DETECTED (Not Detectd) Imaging Data Soft tissue neck CT: Attestation: I have reviewed the pertinent imaging results. My impression: By my read no evidence of peritonsillar abscess. Radiologist's impression: Skull base: Unremarkable. Pharynx/Larynx/Trachea: Epiglottis is normal. Airway is patent. Adjacent soft tissues are normal. Salivary glands: Unremarkable. Thyroid gland: Unremarkable. No significant nodules. Lymph nodes: No lymphadenopathy. Vessels: Unremarkable for age. Bones: Unremarkable for age. Misc: No inflammation, mass or fluid collection. Lung apices: Unremarkable. IMPRESSION: Unremarkable soft tissue CT of the neck. Discharge Plan Discharge Prescriptions: No Action Nexplanon 68 mg implant 1 implant subdermal ONCE Rx Instructions: as a single dose hydrocodone-acetaminophen 5-325 mg tablet 1 tab PO Q6H PRN (Reason: pain) Qty: 15 0RF Follow Up/Referrals: Nicole Stuart MD [Primary Care Provider] -
[2023-05-26 06:32] LABS: Red Blood Count 4.41 m/uL (4.00-5.20); White Blood Count* 8.34 K/uL (4.50-11.00)
[2023-05-26 06:33] LABS: Basophils Percent Auto 0.1 % (0.0-3.0); Eosinophils Percent Auto 0.2 % (0.0-7.0); Hematocrit 42.2 % (33.0-51.0); Hemoglobin* 14.1 gm/dL (12.0-16.0); Immature Granulocytes Pct Auto 0.2 %; Lymphocytes Percent Auto 10.9 % (20-44); Mean Corpuscular HGB Conc 33 gm/dL (32-36); Mean Corpuscular Hemoglobin 32 pg (26-34); Mean Corpuscular Volume 96 fL (80-100); Monocytes Percent Auto 6.5 % (0.0-11.0); Neutrophils Percent Auto 82.1 % (42.0-72.0); Platelet Count* 207 K/uL (140-440); Slide Review Reflex No
[2023-05-26 06:34] LABS: Albumin* 4.7 g/dL (3.3-5.0); Anion Gap 11 mEq/L (7-15); Bilirubin Total* 1.4 mg/dL (0.1-1.5); Blood Urea Nitrogen* 16 mg/dL (5-24); Calcium* 9.2 mg/dL (8.4-10.6); Carbon Dioxide* 22 mmol/L (20-32); Chloride* 105 mmol/L (96-114); Creatinine* 0.9 mg/dL (0.5-1.5); Est. Creatinine Clearance* 81.11; Estimated Glomerular Filt Rate 93 ml/min; Glucose* 109 mg/dL (60-115); Potassium* 3.7 mmol/L (3.6-5.1); Sodium* 138 mmol/L (135-149); Total Protein* 7.8 g/dL (6.0-8.3)
[2023-05-26 06:35] LABS: Alanine Aminotransferase* 17 U/L (4-35); Alkaline Phosphatase* 72 U/L (40-150); Aspartate Amino Transferase* 22 U/L (12-35); C Reactive Protein* 3.5 mg/dL (0.5-1.0); Mono Screen* Negative (Negative); Strep A DNA Probe* NOT DETECTED (Not Detectd)
== END 2023-05-26 05:34 | disposition home or self-care (01) ==
PROVIDERS: Emergency Provider Family Medicine; PCP Pediatrics
DX: J02.9 Acute pharyngitis, unspecified (principal)
CPT/HCPCS: 36415; 70491; 80053; 85025; 86140; 86308; 87631; 87651; 94761; 95992; 96374; 96375; 99284; 99285; J1100; J2270; J2405; J7030; Q9967

== ENCOUNTER 2023-09-13 12:22 | Emergency (ER) | payer BC, SELFPAY ==
[2023-09-13 12:30] VITALS: BP 118/74; PULSE 68; RESP 18; TEMP 37.5; O2SAT 97; BMI 21.8
--- NOTE | 2023-09-13 13:01 | US_ITS ---
Patient: SINGH HINTON Facility:?[facility] Patient ID:?[id number] Site Patient ID:?[id number]. Site :?2000 Study:?US-Pelvis TRANSVAGINAL-09/13/2023 1:45:23 PM Ordering Physician:?MAVIS HAGAN Final Report: Indication: Left abdominal pain Technique: Pelvic ultrasound, transvaginal, utilizing grayscale and color and spectral Doppler. Comparison: None Findings: The uterus is normal in appearance and size measuring 6.6 x 2.3 x 2.8 centimeters. No uterine masses or lesions. The endometrium is normal in appearance and thickness measuring 0.6 centimeters. The visualized portions of the cervix are normal in appearance. The bilateral ovaries are normal in appearance and size with internal arterial and venous flow on Doppler, measuring 3.4 x 1.7 x 3.1 centimeters on the right and 3.0 x 1.4 x 2.3 centimeters on the left. No free fluid. Impression: Unremarkable pelvic ultrasound. Dictated by Prem Guillory MD @ 09/13/2023 1:52:44 PM Signed by:?Prem Guillory MD @09/13/2023 1:52:44 PM (Electronic Signature)
[2023-09-13] MEDS: KETOROLAC 30 MG/ML inj IM (13:12)
--- NOTE | 2023-09-13 13:19 | ED.GENADULT ---
HPI - General Adult General Date Seen: 09/13/23 Chief complaint: Abdominal Pain Stated complaint: abdominal pain Time Seen by Provider: 09/13/23 12:45 Source: patient, RN notes reviewed and old records reviewed Mode of arrival: ambulatory Limitations: no limitations History of Present Illness HPI narrative: Patient is a 23-year-old here with her sister for evaluation of left-sided abdominal pain which has been present intermittently for a number of months. She says she was seen here for this same abdominal pain last February, had a CT scan and a pelvic ultrasound at that time. She was noted have a 2 cm ovarian cyst on the left and also was noted to have mild appendiceal dilation and inflammatory changes. She went on to have appendectomy but notes that she has continued to have this same pain. It lasts a few seconds to a few minutes at a time and during that time can be severe. Right now she just has a little bit of achiness on the left side. She has had this sporadically over the past months, this past week she says she has had episodes every day. Called make a clinic appointment and was recommended to come in to the ER for possible obstruction. She has had a normal appetite, no vomiting or diarrhea, denies constipation. She is sexually active, had her Nexplanon replaced last week and had a negative test at that time. Denies vaginal bleeding or discharge. Denies urinary symptoms. No fevers. No other abdominal surgeries. 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 Smoking Status: Never smoker Second hand tobacco smoke exposure: No How often do you have a drink containing alcohol: 2-4 times a month How many standard drinks containing alcohol do you have on a typical day: 3 or 4 How often do you have six or more drinks on one occasion: Never AUDIT-C Alcohol total score: 3 Non-prescribed substance use: denies use service: No Exam Narrative: Exam Narrative: Vital signs as noted above. In general, an alert, well-appearing patient. She looks comfortable, breathing easily. Head: Normocephalic, atraumatic. Eyes: Pupils are equal reactive. Extraocular movements are full. Conjunctivae are normal. ENT: Mucous membranes are moist. Throat is normal. Neck: Supple without lymphadenopathy. Heart: Regular rate and rhythm. No murmur or rub. Lungs: Clear bilaterally. No increased work of breathing, crackles or wheezes. Abdomen: Soft with fairly diffuse mild tenderness no rebound guarding or rigidity. Tenderness perhaps a little more on the left than the right. Extremities: Well perfused. No edema. No calf tenderness. Pulses intact. Neurologic: Patient is alert and oriented to person and place. Speech is fluent. Face is symmetric. Moves all extremities equally. Affect: Normal. Skin: Warm and dry. Well perfused. Const: Vital Signs, click to edit/add: Vital Signs - 24 hr 09/13/23 12:30 Temperature 99.5 F Pulse Rate [Pulse Oximeter] 68 Respiratory Rate 18 Blood Pressure [Ri ght Upper Arm] 118/74 Pulse Oximetry 97 Oxygen Delivery Me thod Room Air Documenting provider has reviewed patient's vital signs: yes Course Course ED Course: Previous records reviewed including her previous CT scan and ultrasound. Discussed with her that it may be difficult, but with a specific diagnosis in this case given duration and sporadic nature of her symptoms. Will repeat an ultrasound evaluate for ovarian cyst. I do not think a repeat CT scan is likely to be beneficial as her prior one was entirely normal aside from the appendiceal changes. Given that this pain pre dated her appendectomy, I think that CT scan can be reasonably considered in today's evaluation. Discussed that this may be functional abdominal pain, related to some sort of dietary intolerance, endometriosis, etcetera which are diagnoses I am unable to make with certainty in the emergency department. Will order urinalysis, I am not going to repeat a test as it was negative last week. Blood work unlikely to be beneficial in this case. Pelvic ultrasound read as negative by Radiology. UA showed 2-5 red cells, 5-10 white blood cells. She does not have clear symptoms of UTI, I think it is reasonable to await culture and see how she is feeling. She did have 30 mg of IM Toradol here. Her abdominal exam is benign, symptoms have been episodic and recurrent although not with an entirely clear pattern. She did have a period last week for the 1st time in several years, presumably related to her Nexplanon being switched out. Perhaps her symptoms are related to that, she says she does not typically get cramps when she does have a period. I have asked her to follow up with primary care to start, follow up with [facility] may make sense at some point. I have also asked her to keep track of the days that she does have pain, to start determining whether there is any pattern to it. Return as needed for severe symptoms. Ibuprofen or Tylenol as needed. Vital Signs Vital signs: Initial Vital Signs Temperature 99.5 F 09/13/23 12:30 Temperature Source Temporal Artery Scan 09/13/23 12:30 Pulse Rate 68 09/13/23 12:30 Respiratory Rate 18 09/13/23 12:30 Blood Pressure 118/74 09/13/23 12:30 Blood Pressure Mean 88 09/13/23 12:30 Blood Pressure Position Sitting 09/13/23 12:30 Pulse Oximetry 97 09/13/23 12:30 Oxygen Delivery Method Room Air 09/13/23 12:30 Vital Signs Temperature 99.5 F 09/13/23 12:30 Pulse Rate 68 09/13/23 12:30 Respiratory Rate 18 09/13/23 12:30 Blood Pressure 118/74 09/13/23 12:30 Pulse Oximetry 97 09/13/23 12:30 Oxygen Delivery Method Room Air 09/13/23 12:30 Temperature 99.5 F 09/13/23 12:30 Pulse Rate 68 09/13/23 12:30 Respiratory Rate 18 09/13/23 12:30 Blood Pressure 118/74 09/13/23 12:30 Pulse Oximetry 97 09/13/23 12:30 Oxygen Delivery Method Room Air 09/13/23 12:30 Medications Administered Medications: Discontinued Medications Generic Name Dose Route Start Last Admin Trade Name Freq PRN Reason Stop Dose Admin Ketorolac Tromethamine 30 mg 09/13/23 13:00 09/13/23 13:12 Ketorolac 30 Mg/Ml Inj IM 09/13/23 13:01 30 mg ONCE ONE Administration Medical Decision Making Lab Data Labs: Lab Results 09/13/23 Range/Units 13:00 Urine Color Yellow (Yellow) Urine Appearance Slightly Cloudy A (Clear) Urine pH 6.0 (5.0-8.5) Ur Specific [place] 1.025 (1.000-1.030) Urine Protein Negative (Negative) Urine Glucose (UA) Negative (Negative) Urine Ketones Negative (Negative) Urine Blood Trace-intact A (Negative) Urine Nitrite Negative (Negative) Urine Bilirubin Negative (Negative) Urine Urobilinogen 0.2 (0.2-1.0) Ur Leukocyte Esterase Trace A (Negative) Urine RBC 2-5 A (0-2) Urine WBC 5-10 A (0-5) Ur Squamous Epith Cells Few (None-Few) Urine Bacteria Moderate A (None) Discharge Plan Discharge Clinical Impression: Abdominal pain Patient Disposition: Home, Self-Care Condition: Stable Instructions: Abdominal Pain (ED) Additional Instructions: Keep track of your symptoms going forward, look for patterns. Ibuprofen and/or Tylenol as needed. Primary care follow-up. Return for worsening. Prescriptions: No Action Nexplanon 68 mg implant 1 implant subdermal ONCE Rx Instructions: as a single dose Follow Up/Referrals: Nicole Stuart MD [Staff Physician] - Stand Alone Forms: [employer] Info Instructions
[2023-09-13 13:29] LABS: Appearance Urine Slightly Cloudy (Clear); Bilirubin Urine Negative (Negative); Blood Urine Trace-intact (Negative); Color Urine Yellow (Yellow); Glucose Urine Negative (Negative); Ketones Urine Negative (Negative); Leukocyte Esterase Urine Trace (Negative); Nitrite Urine Negative (Negative); Protein Urine Negative (Negative); Specific Gravity Urine 1.025 (1.000-1.030); Urobilinogen Urine 0.2 (0.2-1.0)
[2023-09-13 13:51] LABS: Bacteria Urine Moderate; Squamous Epithelial Cell Urine Few (None-Few)
== END 2023-09-13 14:36 | disposition home or self-care (01) ==
PROVIDERS: Emergency Provider Emergency Medicine; PCP Student in an Organized Health Care Education/Training Program
DX: R10.9 Unspecified abdominal pain (principal)
CPT/HCPCS: 76830; 81001; 87086; 93976; 96372; 99284; J1885

== ENCOUNTER 2023-09-20 08:18 | Outpatient (CLI) | payer BC, SELFPAY | END 2023-09-20 08:19 | disposition home or self-care (01) | LOC: NFLDREF 08:19 | PROVIDERS: PCP Student in an Organized Health Care Education/Training Program; Visit Provider Internal Medicine | DX: R10.9 Unspecified abdominal pain (principal) | CPT/HCPCS: 80053 ==

== ENCOUNTER 2023-09-27 16:27 | Outpatient (CLI) | payer BC, SELFPAY ==
--- NOTE | 2023-09-27 16:45 | CT_ITS ---
Patient: SINGH HINTON Facility:?[facility] Patient ID:?[id number] Site Patient ID:?[id number]. Site :?2001 Study:?CT-Abdomen/Pelvis W/ 64CC ISOVUE 370-09/27/2023 5:05:12 PM Ordering Physician:ANTHONY Final Report: Indication: Abdominal pain Technique: CT Abdomen/Pelvis W/ 64CC ISOVUE 370 Please note that all CT scans at this facility use dose modulation, iterative reconstruction, and/or weight-based dosing when appropriate to reduce radiation dose to as low as reasonably achievable. Comparison: Pelvic ultrasound 09/13/2023 Findings: The lung bases are clear. No pleural effusion. No suspicious intrahepatic mass. Incidental gallbladder fold at the gallbladder fundus. No calcified gallstones. No biliary obstruction. The spleen is normal. Normal kidneys. The adrenal glands are within normal limits. Normal pancreas. Bladder is normal. No uterine fibroid. No pelvic mass. No bowel obstruction, free air or abscess. The appendix is absent. No evidence of inflammatory bowel disease. No adenopathy. No fracture. Impression: Unremarkable CT of the abdomen and pelvis. Please note that all CT scans at this facility use dose modulation, iterative reconstruction, and/or weight-based dosing when appropriate to reduce radiation dose to as low as reasonably achievable. Dictated by Atif Watkins MD @ 09/28/2023 9:56:53 AM Signed by:?Atif Watkins MD @09/28/2023 9:56:53 AM (Electronic Signature)
== END 2023-09-27 16:28 | disposition home or self-care (01) ==
LOC: CT 16:28
PROVIDERS: PCP Student in an Organized Health Care Education/Training Program; Visit Provider Internal Medicine
DX: R10.9 Unspecified abdominal pain (principal)
CPT/HCPCS: 74177; Q9967

== ENCOUNTER 2023-10-13 12:19 | Outpatient (CLI) | payer BC, SELFPAY ==
--- OUTSIDE RECORDS SUMMARY | 2023-10-13 12:21 | XMS_ITS | Clinical Summary ---
Author Name Unknown Organization [facility] Address [place], [place] [address] Care Team Providers Care Log Operations Coordinator Name Role Phone Nneka Jon MD Unavailable Pcp, No Primary Care Provider Unavailabl e Allergies No known active allergies Medications Hospital, Clinic, or Other Facility Administered Medication Ordered Dose Route Frequency Start Date End Date Status etonogestrel subdermal implant (NEXPLANON) 68 mg implant 1 EachIndications:Encounter for removal and reinsertion of Nexplanon 1 Each Sdrm Q 3 YEARS 09/11/2023 Active Active Problems Problem Noted Date Diagnosed Date Labial lesion 2023 Pap smear for cervical cancer screening 08/14/19 23 Overview: 07/2022 NIL Plan: Pap due 07/2025 Menorrhagia with irregular cycle 07/24/2016 Resolved Problems Problem Noted Date Diagnosed Date Resolved Date 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 Centralized Nurse Triage Pcp, No Abdominal Pain/problem 09/10/2023 11:05 AM CDT Office Visit [facility] [address] [place] [address] Anika Dennis MD Contraception (remove and replace Nexplanon) 09/10/2023 Travel 07/15/2023 11:00 AM PAINTING WORKER Nurse/Clinic Staff Only [facility] [address] [place] [address] Nurse/Clinic Staff Only 07/15/2023 Orders Only [address] [address] Evelio King PA <No scans attached> 07/15/2023 Travel from Last 3 Months Immunizations Name Administration Dates Next Due DTaP 01/24/2007, 3,2001,08/22,2001 HIB-HepB (Comvax) 09/27/2002, 2,2001,06/28 HPV 9 (Gardasil 9) 05/28/2017 Hepatitis A (Peds) 02/07/2013,01/28/2010 Hepatitis B (Peds) 05/15/2002 Hib Conjugate, Unspecified 05/15/2002 Human Papilloma Virus Vaccine 02/07/2013 Inactivated Polio Vaccine 01/24/2007,01/2002,2001,06/28 Influenza, IIV3 (Age >=3 years) 03/07/20 09,03/07/2009,05/02/2007,07/22 Influenza, IIV4 05/28/2017 MMR 01/24/2007,05/15/2002 MMRV 01/24/2007 Meningococcal Vaccine (Menveo) 05/28/2017,2012 Pneumococcal conj 7-Valent (Prevnar 7) 1 07/23/2002,09/27/2002,2001,06/28 Tdap 02/07/2013 Varicella Vaccine 01/24/2007,05/15/2002 Family History Medical History Relation Name Comments Unknown Father Autoimmune disease Mother hepatitis Hypertension Mother Thyroid Disease Mother nicho's Anesthesia Problem No Family History Relation Name Status Comments Father Mother Social History Tobacco Use Types Packs/Day Years Used Date Smoking Tobacco: Never Smokeless Tobacco: Never Tobacco Cessation:Counseling Given: Yes Comments:mom outside only Alcohol Use Standard Drinks/Week Comments No 0 (1 standard drink = 0.6 oz pur e alcohol) occasinal PHQ-2 Answer Date Recorded PHQ-2 TOTAL SCORE 0 07/28/2022 Social Connections Answer Date Recorded Frequency of Communication with Friends and Fami ly Not on file 09/13/2023 Financial Resource Strain Answer Date R ecorded Difficulty of Paying Living Expenses 3 09/10/2022 Difficulty of Paying Living Expenses Not on file 09/10/2022 Food Insecurity Answer Date Recorded Worried About Running Out of Food in the Last Ye ar 1 09/10/2022 Transportation Needs Answer Date Record ed Lack of Transportation (Medical) 1 09/10/2022 Housing Stability Answer Date Recorded Unable to Pay for Housing in the Last Year 1 09/10/2022 Sex and Gender Information Value Date Recorded Sex Assigned at Female 07/21/2022 7:57 AM PAINTING WORKER Gender Identity Female 07/21/2022 7:57 AM PAINTING WORKER Sexual Orientation Not on file Obstetrics History Para Term AB IAB SAB Ectopic Multiple Livin g Live Births 0 0 0 0 0 0 0 0 0 0 Last Filed Vital Signs Vital Sign Reading Time Taken Comments Blood Pressure 116/77 09/10/2023 11:10 AM CDT Pulse 101 09/10/2023 11:10 AM CDT Temperature 37.2 ??C (98.9 ??F) 07/29/2016 1:20 PM CS T Respiratory Rate - - Oxygen Saturation 99% 09/10/2023 11:10 AM CDT Inhaled Oxygen Concentration - - Weight 59.9 kg (132 lb) 09/10/2023 11:10 AM CDT Height 160 cm (5' 3) 07/13/2023 4:17 PM PAINTING WORKER Body Mass Index 23.38 07/13/2023 4:17 PM PAINTING WORKER Plan of Treatment Health Maintenance Due Date Last Done Comments Tetanus booster 02/07/2023 02/07/2013 COVID-19 vaccine series ( season) 2023 Depression screening for age 12+ 07/28/2023 07/28/2022, 10/23/2021, 10/20/2021, Additional history exists Influenza for age 9-49 02/13/2024 7, 03/07/2009, 03/07/2009, Additional history exists BMI (ht and wt on same day) for age 18+ 07/13/2024 07/13/2023, 2023, 08/24/2022, Additional history exists Chlamydia for age 16-24 07/13/2024 07/13/19 24, 2023, 12/02/2022, Additional history exists Pap test for age 21-65 07/28/2025 07/28/2022 Pneumococcal series for age 6-64 Aged Out 05/22/2003, 09/27/2002, 2001, Additional history exists No longer eligible based on patient's age to complete this topic Tdap Completed 02/07/2013 HIV for age 15-65 Completed 05/28/2017 HPV series for age 9-26 Completed 05/28/2017, 02/07 Hepatitis C screening for age 18-79 Completed 05/28/2017 Procedures Procedure Name Priority Date/Time Associated Diagnosis Comments SCAN-CT INTERPRETATION 09/27/2023 12:00 AM CDT THROAT RAPID STREP ONLY CLINIC Patient wait 07/15/2023 11:15 AM PAINTING WORKER Sore throat GC CHLAMYDIA TRACH PROBE Routine 07/13/2023 4:35 PM PAINTING WORKER Itching in the vaginal area BRICK AND TILE MAKING MACHINE OPERATOR THIN PREP PAP SCREEN IMAGED Routine 07/28/2022 3:28 PM PAINTING WORKER Screening for malignant neoplasm of cervix ANTI HIV 1/2 Routine 05/28/2017 9:32 AM PAINTING WORKER Screening examination for STD (sexually transmitted disease) Unprotected sexual intercourse ANTI HCV Routine 05/28/2017 9:32 AM PAINTING WORKER Screening examination for STD (sexually transmitted disease) Unprotected sexual intercourse from Last 3 Months or Most Recently Relevant to Health Maintenance Results * SCAN-CT INTERPRETATION (09/27/2023 12:00 AM CDT) Anatomical Region Laterality Modality Other Scanner OTHER * THROAT RAPID STREP ONLY CLINIC (07/15/2023 11:15 AM PAINTING WORKER) THROAT RAPID STREP A ANTIGEN Negative 07/15/2023 11:36 AM PAINTING WORKER [facility] Throat SPECIMEN FROM THROAT / Unknown Non-Blood / Unknown 07/15/2023 11:15 AM PAINTING WORKER 07/15/2023 11:28 AM PAINTING WORKER Evelio CARLOS MICROBIOLOGY Performing Organization Address City/[facility]/ZIP Co de Phone Number [facility] [address] [place] [address] * GC CHLAMYDIA TRACH PROBE (07/13/2023 4:35 PM PAINTING WORKER) CHLAMYDIA PROBE Negative 11:58 AM PAINTING WORKER [facility] N GONORRHOEAE PROBE Negative 07/14/2023 11:58 AM PAINTING WORKER [facility] Other VAGINAL SWAB / Unknown Non-Blood / Unknown 07/13/2023 4:35 PM PAINTING WORKER 07/13/2023 5:02 PM PAINTING WORKER Evelio CARLOS MICROBIOLOGY Performing Organization Address City/[facility]/ZIP Co de Phone Number [facility] [address] * BRICK AND TILE MAKING MACHINE OPERATOR THIN PREP PAP SCREEN IMAGED [[id number]] (07/28/2022 3:28 PM PAINTING WORKER) Case Report Gynecologic Cytology Report ? Case: [id number] ? Authorizing Provider: ??Nicole Stuart ? Collected: ? 07/28/2022 1528 ? MD Fallon ? Ordering Location: ? [facility] ?? Received: ?07/28/2022 1537 ? Clinic ? First Screen: ?Emy, Brandy ? Specimen: ?BRICK AND TILE MAKING MACHINE OPERATOR ThinPrep Vial Screening, Cervical ? 08/13/2022 11:18 AM [facility] INTERPRETATION/ RESULT NEGATIVE FOR INTRAEPITHELIAL LESION OR MALIGNANCY (NIL) (none) 08/13/2022 11:18 AM [facility] IMEN ADEQUACY Satisfactory for evaluation Endocervical component present 08/13/2022 11:18 AM PAINTING WORKER [facility] Date of LMP none - suppressed 2022 11:18 AM PAINTING WORKER [facility] Last Pap Date NA 08/13/2022 11:18 AM PAINTING WORKER [facility] Last Pap Result First Pap/Unknown 11:18 AM PAINTING WORKER [facility] Abnormal Pap or Cummings Bx in last 5 years No 08/13/2022 11:18 AM PAINTING WORKER [facility] Menstrual Status Hormonally Suppressed 08/13/2022 11:18 AM PAINTING WORKER [facility] ENTRAL LABORATORY Cummings Bx Done Today No 08/13/2022 11:18 AM PAINTING WORKER [facility] Additional Information None given 08/13/2022 11:18 AM PAINTING WORKER [facility] Comment: Cytology is screened at [facility] - [address], [place] [address] and [facility] - [address], [place] [address] and [facility] - [address] [place] [address] [facility] - [address], [place] [address] Automated Review Successful 08/13/2022 11:18 AM PAINTING WORKER [facility] Comment:Specimen processed s uccessfully by automated edger operator device, ThinPrep Imaging System, [employer] Note The pap test is a screening technique, not a diagnostic procedure. It is used primarily to screen for squamous cancers and precursor lesions. Published studies have shown that it is subject to both false negative and false positive results. The pap test should not be used as the sole means to diagnose or exclude pre-malignant and malignant lesions. 08/13/2022 11:18 AM PAINTING WORKER [facility] Other (Cervical) Non-Blood / Unknown 07/28/2022 3:28 PM PAINTING WORKER 07/28/2022 3:37 PM PAINTING WORKER Nicole Stuart MD PATHOLOGY/C YTOLOGY [facility] [address] [place] [address], [place] * ANTI HCV (05/28/2017 9:32 AM PAINTING WORKER) HEPATITIS C ANTIBODY Non-Reacti ve Non-Reacti ve 05/28/2017 4:42 PM PAINTING WORKER [facility] TR[facility] Blood BLOOD SPECIMEN / Unknown Venipuncture / Unknown 05/28/2017 9:32 AM PAINTING WORKER 05/28/2017 9:32 AM PAINTING WORKER Narrative [facility] - 05/28/2017 4:42 PM PAINTING WORKER Antibodies to HCV not detected; does not exclude the possibility of exposure to HCV. Nicole Stuart MD SEND OUTS [facility] [address] [place] [address], [place] * ANTI HIV 1/2 (05/28/2017 9:32 AM PAINTING WORKER) HIV-1/HIV-2 ANTIBODY Non-Reacti ve Non-Reacti ve 05/28/2017 4:39 PM PAINTING WORKER [facility] TR[facility] Blood BLOOD SPECIMEN / Unknown Venipuncture / Unknown 05/28/2017 9:32 AM PAINTING WORKER 05/28/2017 9:32 AM PAINTING WORKER Narrative [facility] - 05/28/2017 4:39 PM PAINTING WORKER HIV-1 p24 and HIV-1/HIV-2 Ab not detected Nicole Stuart MD SEND OUTS [facility] [address] [place] [address], [place] from Last 3 Months or Most Recently Relevant to Health Maintenance Care Teams Log Operations Coordinator Relationship Specialty Start Date End Date Pcp, No . PCP - General 07/13/23 Nneka Jon MD [address] [facility] [place] [address] Neurology Neurology - Child 04/19/13
[2023-10-13 16:01] LABS: Chlamydia DNA Amplified* NOT DETECTED (No Detected); GC DNA Amplified* NOT DETECTED (No Detected)
== END 2023-10-13 12:20 | disposition home or self-care (01) ==
LOC: NFLDREF 12:19
PROVIDERS: PCP Internal Medicine; Visit Provider Registered Nurse
DX: R10.9 Unspecified abdominal pain (principal); Z11.3 Encounter for screening for infections with a predominantly sexual mode of transmission
CPT/HCPCS: 87491; 87591

== ENCOUNTER 2023-11-22 09:46 | Outpatient (CLI) | payer BC, SELFPAY ==
--- NOTE | 2023-11-22 09:45 | CRLHL7_ITS ---
For Patients: As a result of the Century Cures Act, medical imaging exams and procedure reports are released immediately into your electronic medical record. You may view this report before your referring provider. If you have questions, please contact your health care provider. INDICATION: Abdominal pain COMPARISON: CT 09/27/2023 TECHNIQUE: Real time bonilla scale imaging and color Doppler analysis was performed of the right upper quadrant. FINDINGS: The patient`s liver is of normal size and has uniform echogenicity. There is a normal appearance of the hepatic IVC and proximal abdominal aorta. There is no evidence of ascites. The gallbladder is of normal size and there is no evidence of intraluminal stones or sludge. The gallbladder wall measures 1.3 mm in thickness. The common bile duct is of normal size and measures 2.0 mm in diameter at the level of the lauren hepatis. The pancreas appears normal. There is no evidence of a stone or hydronephrosis within the right kidney. The right kidney measures 11.3 cm in length. IMPRESSION: Normal right upper quadrant ultrasound. Dictated by Atif Watkins MD @ 11/22/2023 10:57:28 AM (Electronically Signed)
--- OUTSIDE RECORDS SUMMARY | 2023-11-22 09:48 | XMS_ITS | Clinical Summary ---
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, CT-ABDOMEN PELVIS W CON, 09/27/2023 09/13/2023 Nurse Triage [facility] Centralized Nurse Triage Pcp, No Abdominal Pain/problem 09/10/2023 11:05 AM CDT Office Visit [facility] [address] [place] [address] Anika Dennis MD Contraception (remove and replace Nexplanon) 09/10/2023 Travel from Last 3 Months Immunizations Name [...] Sex Assigned at Female 07/21/2022 7:57 AM SAS ARCHITECT Gender Identity Female 07/21/2022 7:57 AM SAS ARCHITECT Sexual Orientation Not on file Obstetrics History [...] 160 cm (5' 3) 07/13/2023 4:17 PM SAS ARCHITECT Body Mass Index 23.38 07/13/2023 4:17 PM SAS ARCHITECT Plan of Treatment Health Maintenance Due Date [...] Priority Date/Time Associated Diagnosis Comments SCAN-CT INTERPRETATION 12:00 AM CDT GC CHLAMYDIA TRACH PROBE Routine 07/13/2023 4:35 PM SAS ARCHITECT Itching in the vaginal area 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 PREP PAP SCREEN IMAGED Routine 07/28/2022 3:28 PM SAS ARCHITECT Screening for malignant neoplasm of cervix ANTI HIV 1/2 Routine 05/28/2017 9:32 AM SAS ARCHITECT Screening examination for STD (sexually transmitted disease) Unprotected sexual intercourse ANTI HCV Routine 05/28/2017 9:32 AM SAS ARCHITECT Screening examination for STD (sexually transmitted disease) Unprotected sexual intercourse from Last 3 Months or Most Recently Relevant to Health Maintenance Results * SCAN-CT INTERPRETATION (09/27/2023 12:00 AM CDT) Anatomical Region Laterality Modality Other Scanner OTHER * GC CHLAMYDIA TRACH PROBE (07/13/2023 4:35 PM SAS ARCHITECT) CHLAMYDIA PROBE Negative 11:58 AM SAS ARCHITECT [facility] LAB[facility] N GONORRHOEAE PROBE Negative 07/14/2023 11:58 AM SAS ARCHITECT [facility] Other VAGINAL SWAB / Unknown Non-Blood / Unknown 07/13/2023 4:35 PM SAS ARCHITECT 07/13/2023 5:02 PM SAS ARCHITECT Evelio CARLOS MICROBIOLOGY [facility] 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 Case: [id number] ? Authorizing Provider: ??Narciso, Nicole Vazqueze ? Collected: ? 07/28/2022 1528 ? Elmerundberg, MD ? Ordering Location: ? [facility] ?? Received: ?07/28/2022 1537 ? Clinic ? First Screen: ?Baccam, Minie ? Specimen: ?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 ThinPrep Vial Screening, Cervical ? 08/13/2022 11:18 AM SAS ARCHITECT [facility] INTERPRETATION/ RESULT NEGATIVE FOR INTRAEPITHELIAL LESION OR MALIGNANCY (NIL) (none) 08/13/2022 11:18 AM SAS ARCHITECT [facility] IMEN ADEQUACY Satisfactory for evaluation Endocervical component present 08/13/2022 11:18 AM SAS ARCHITECT [facility] Date of LMP none - suppressed 2022 11:18 AM SAS ARCHITECT [facility] [employer] [facility] Last Pap Date NA 08/13/2022 11:18 AM SAS ARCHITECT [facility] [employer] [facility] Last Pap Result First Pap/Unknown 11:18 AM SAS ARCHITECT [facility] [employer] [facility] Abnormal Pap or [place] Bx in last 5 years No 08/13/2022 11:18 AM SAS ARCHITECT [facility] Menstrual Status Hormonally Suppressed 08/13/2022 11:18 AM SAS ARCHITECT [facility] [employer] [facility] [place] Bx Done Today No 08/13/2022 11:18 AM SAS ARCHITECT [facility] [employer] [facility] Additional Information None given 08/13/2022 11:18 AM SAS ARCHITECT [facility] [employer] [facility] Comment: Cytology is screened at [facility] - [address], [place] [address] and [facility] - [address] [place] [address] and [facility] - [address] [place] [address] Interpreted at [facility] - [address], [place] [address] Automated Review Successful 08/13/2022 11:18 AM SAS ARCHITECT [facility] [employer] [facility] Comment:Specimen processed s uccessfully by automated shoe stitcher device, ThinPrep Imaging System, [employer] Note The pap test is a screening technique, not a diagnostic procedure. It is used primarily to screen for squamous cancers and precursor lesions. Published studies have shown that it is subject to both false negative and false positive results. The pap test should not be used as the sole means to diagnose or exclude pre-malignant and malignant lesions. 08/13/2022 11:18 AM SAS ARCHITECT [facility]ORAT[facility] Other (Cervical) Non-Blood / Unknown 07/28/2022 3:28 PM SAS ARCHITECT 07/28/2022 3:37 PM SAS ARCHITECT Nicole Stuart MD PATHOLOGY/C YTOLOGY [facility] [address] [place] [address], [place] * ANTI HCV (05/28/2017 9:32 AM SAS ARCHITECT) HEPATITIS C ANTIBODY Non-Reacti ve Non-Reacti ve 05/28/2017 4:42 PM SAS ARCHITECT [facility] TRAL LABORATORY Blood BLOOD SPECIMEN / Unknown Venipuncture / Unknown 05/28/2017 9:32 AM SAS ARCHITECT 05/28/2017 9:32 AM SAS ARCHITECT Narrative [facility] - 05/28/2017 4:42 PM SAS ARCHITECT Antibodies to HCV not detected; does not exclude the possibility of exposure to HCV. Nicole Stuart MD SEND OUTS Performing Organization Address City/[facility]/ZIP Co de Phone Number [facility] [address] [place] [address], [place] * ANTI HIV 1/2 (05/28/2017 9:32 AM SAS ARCHITECT) HIV-1/HIV-2 ANTIBODY Non-Reacti ve Non-Reacti ve 05/28/2017 4:39 PM SAS ARCHITECT [facility] TRAL [facility] Blood BLOOD SPECIMEN / Unknown Venipuncture / Unknown 05/28/2017 9:32 AM SAS ARCHITECT 05/28/2017 9:32 AM SAS ARCHITECT Narrative [facility] - 05/28/2017 4:39 PM SAS ARCHITECT HIV-1 p24 and HIV-1/HIV-2 Ab not detected Nicole Stuart MD SEND OUTS [facility] 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 PCP - General 07/13/23 Nneka Jon MD [address] [place] [address] Neurology Neurology - Child 04/19/13
== END 2023-11-22 09:47 | disposition home or self-care (01) ==
LOC: US 09:47
PROVIDERS: PCP Internal Medicine; Visit Provider Internal Medicine
DX: R10.9 Unspecified abdominal pain (principal)
CPT/HCPCS: 76705

== ENCOUNTER 2024-06-12 16:00 | Outpatient (RCR) | payer BC, SELFPAY | END 2024-07-19 16:21 | disposition home or self-care (01) | PROVIDERS: PCP Internal Medicine; Visit Provider Nurse Practitioner Family | DX: M54.50 Low back pain, unspecified (principal); R53.1 Weakness; Z74.09 Other reduced mobility; Z51.89 Encounter for other specified aftercare | CPT/HCPCS: 97032; 97110; 97140; 97162 ==

== ENCOUNTER 2024-08-11 12:31 | Outpatient (CLI) | payer BC, SELFPAY | END 2024-08-11 12:32 | disposition home or self-care (01) | LOC: NFLDREF 08-14 01:39 | PROVIDERS: PCP Internal Medicine; Referring Provider Internal Medicine; Visit Provider Nurse Practitioner Family | DX: Z11.3 Encounter for screening for infections with a predominantly sexual mode of transmission (principal); N89.8 Other specified noninflammatory disorders of vagina; N76.0 Acute vaginitis | CPT/HCPCS: 87491; 87591 ==

== ENCOUNTER 2024-11-13 12:28 | Outpatient (CLI) | payer BC, SELFPAY ==
[2024-11-13 21:47] LABS: Chlamydia DNA Amplified* NOT DETECTED (No Detected); GC DNA Amplified* NOT DETECTED (No Detected)
== END 2024-11-13 12:29 | disposition home or self-care (01) ==
LOC: LKVREF 12:31
PROVIDERS: PCP Internal Medicine
DX: N89.8 Other specified noninflammatory disorders of vagina (principal); R82.90 Unspecified abnormal findings in urine; Z11.3 Encounter for screening for infections with a predominantly sexual mode of transmission
CPT/HCPCS: 87086; 87491; 87591